=== PATIENT | female | born 1980 | race Caucasian/White ===

== ENCOUNTER 2019-09-22 11:44 | Outpatient (CLI) | payer BC, SELFPAY ==
--- NOTE | ~2019-09-22 | MR_ITS ---
EXAMINATION: MR pituitary wo/w con DATE: 09/22/2019 13:17 INDICATION: Hyperprolactinemia. TECHNIQUE: Magnetic resonance imaging (MRI) of the brain and brainstem was performed without and with 18 mL MultiHance intravenous contrast. Whole-brain sequences included sagittal T1-weighted FSE, axia l diffusion-weighted FS EPI, axial T2*-weighted GRE, axial T2-weighted FLAIR Propeller, and axial T2- weighted Propeller. Small boygw-bc-bboq sequences included sagittal and coronal T1-weighted FSE cente red at the pituitary. Postcontrast sequences included small oazkz-xn-baky coronal T1-weighted FSE in a time course and sagittal T1-weighted FSE and whole-brain axial T1-weighted FSE. Apparent diffusion coefficient (ADC) maps were created. COMPARISON: None. FINDINGS: The pituitary is normal in size with height of 8 mm and concave superior margin. The infund ibulum is at the midline. There are 3 foci of nonspecific increased T2-weighted signal intensity in t he cerebral white matter, which is within normal limits for the patient's age. There is no intracrani al hemorrhage, acute infarction, or abnormal intracranial mass lesion. The ventricles are normal in s ize. The paranasal sinuses are clear. The orbits are normal. The mastoid air cells are normal. IMPRESSION: 1. Normal brain. Normal pituitary. Reviewed, dictated and finalized at location A.
[2019-09-22 12:25] LABS: Estimated Glomerular Filt Rate > 60
== END 2019-09-22 11:45 | disposition home or self-care (01) ==
PROVIDERS: Visit Provider Obstetrics & Gynecology Gynecology
DX: E22.1 Hyperprolactinemia (principal)
CPT/HCPCS: 36415; 70553; A9577

== ENCOUNTER 2019-10-07 00:14 | Outpatient (CLI) | payer BC, SELFPAY ==
[2019-10-08 00:19] LABS: SARS-CoV-2 RNA PCR Negative
== END 2019-10-07 00:15 | disposition home or self-care (01) ==
LOC: ANHCOVIDDT 00:14
PROVIDERS: Visit Provider Obstetrics & Gynecology Gynecology
DX: Z01.818 Encounter for other preprocedural examination (principal); Z11.59 Encounter for screening for other viral diseases
CPT/HCPCS: 87635; C9803; U0003

== ENCOUNTER 2019-10-10 01:55 | Day surgery (SDC) | payer BC, SELFPAY ==
--- NOTE | 2019-10-10 07:23 | PM.HPGS ---
History of Present Illness History of Present Illness Consent: Risks, benefits, and alternatives have been discussed and questions answered. Patient agrees to proceed with procedure. Chief complaint: uterine fibroid Narrative: Jeannie Laird is a 39 year old female with increasingly heavy cycles since 06/23. Patient with history of myomectomy 06/21 and did well until recently. Pelvic u/s showed 2 fibroids in the endometrial cavity each approx. 1.5 cm. Reviewed options and plan to proceed with hysterscopic myomectomies. Risks of infection, bleeding, perforation, and fluid imbalance discussed. Patient agrees to proceed. PMFSH Past Medical History Medical History (Updated 10/10/19 @ 07:26 by Jelly Prater MD) (normal spontaneous vaginal delivery) x 2 Surgical History Surgical History (Updated 10/10/19 @ 07:26 by Jelly Prater MD) Status post hysteroscopic myomectomy Family History Family History (Updated 06/08/15 @ 13:50 by DOCTOR UNKNOWN) Other Diabetes mellitus Hypertension Social History Social History Smoking status: Never smoker Substance use: never Spiritual care concerns: No Meds Home Medications and Allergies Home Medications Medication Instructions Recorded Confirmed Type drospirenone-ethinyl estradiol 1 tablet PO DAILY 10/03/19 10/03/19 History Allergies Allergy/AdvReac Type Severity Reaction Status Date / Time No Known Allergies Allergy Unknown Verified 10/03/19 16:48 Exam Const: General: healthy appearing and alert Orientation/consciousness: patient oriented x3 Resp: Effort & Inspection: normal respiratory effort Auscultation: clear to auscultation bilaterally Cardio: Rate: regular rate Rhythm: regular rhythm GI: GI Palp: Yes Soft to palpation, No Tenderness to palpation present (GI) and No Palpable mass present : External Female Exam: normal external appearance Speculum Exam - Vagina: normal appearance of the vagina and normal vaginal discharge Speculum Exam - Cervix: normal appearance of the cervix Bimanual exam- vagina & uterus: uterine size normal and consistency normal Bimanual Exam- Adnexa, other: normal adnexae and No adnexal tenderness Neuro: General: patient oriented x3 Assessment and Plan Assessment and plan (1) Menorrhagia: Code(s): N92.0 - Excessive and frequent menstruation with regular cycle Status: Acute Assessment and Plan: Plan hysteroscopy and D&C (2) Fibroids: Code(s): D21.9 - Benign neoplasm of connective and other soft tissue, unspecified Status: Acute Assessment and Plan: with myosure resection if possible
--- NOTE | 2019-10-10 08:59 | WPDANESEPPF ---
Anes - Initial Pre Proc Eval Procedure: Operation Date: 10/10/19 10:00 Proposed Procedures p Hysteroscopy Dilation And Curettage With Myosure - Jelly Prater MD Date/Time: 10/10/19 08:59 Surgeon: Jelly Prater MD Pre Op Diagnosis: uterine fibroid Patient Data Age: 39 Gender: F Height: 5 ft 8 in Weight: 9.09 kg Allergies Allergy/AdvReac Type Severity Reaction Status Date / Time No Known Allergies Allergy Unknown Verified 10/03/19 16:48 Home Medications Medication Instructions Recorded Confirmed Type drospirenone-ethinyl estradiol 1 tablet PO DAILY 10/03/19 10/03/19 History Patient hx anesthesia problems: none Family hx anesthesia problems: none PMFSH Past Medical History Medical History (normal spontaneous vaginal delivery) x 2 Surgical History Surgical History Status post hysteroscopic myomectomy Family History Family History Other Diabetes mellitus Hypertension Social History Social History Smoking status: Never smoker Substance use: never Spiritual care concerns: No Anes - Eval Final PreProcedure Day of Procedure 10/10/19 08:59 Patient weight: obese Heart: regular rate and rhythm Lungs: clear to auscultation Airway: Mallampati scale class II Neurological: alert and oriented Last oral intake: >/= 8 hours ASA classification: II Emergent: no Anesthetic plan: proceed Anesthesia type and monitoring: general GIVS and standard monitoring Informed Consent: The patient's anesthetic plan and its attendant risks and benefits were discussed with the patient/family/POA. Questions were solicited and answers provided to the satisfaction of the patient/family/POA.
[2019-10-10 09:00] VITALS: BP 114/71; PULSE 78; RESP 16; TEMP 37.5; O2SAT 100
[2019-10-10] MEDS: LACTATED RINGERS 1,000 ML 30 ML IV CONT (09:05)
[2019-10-10] MEDS: KETOROLAC 30 MG/ML VIAL (*BKC) 15 MG IV PUSH (09:17)
[2019-10-10 09:58] VITALS: BP 131/87; PULSE 73; RESP 19; O2SAT 96
--- NOTE | 2019-10-10 09:58 | PM.OP ---
Procedure Note - Brief Procedure Note - Brief Date of procedure: 10/10/19 Pre-op diagnosis: uterine fibroid menorrhagia Post-op diagnosis: same Procedure performed: hysteroscopy with D&C and myosure resection of fibroid Anesthesia: MAC and local Surgeon: Jelly Prater MD Estimated blood loss (mL): 5 Drains: No Packing: No Pathology: yes (endometrial shavings, curettings, and 2 pieces of fibroid) Complications: No immediate complications Condition: stable Disposition: PACU Findings: uterus retroverted, 9 cm; bilobed fibroid left anterior; remainder of endometrium appears normal
[2019-10-10 10:25] VITALS: BP 132/68; PULSE 50; RESP 16
[2019-10-10 10:50] VITALS: BP 125/78; PULSE 62; RESP 16
--- NOTE | 2019-10-11 06:19 | OP_ITS ---
DATE OF PROCEDURE: 10/10/2019 PREOPERATIVE DIAGNOSIS: Menorrhagia, fibroids. POSTOPERATIVE DIAGNOSIS: Menorrhagia, fibroids. PROCEDURE: D and C, hysteroscopy with MyoSure resection of fibroid. ESTIMATED BLOOD LOSS: 5 cc. PATHOLOGY: Endometrial curettings and shavings as well as 2 separate pieces of fibroid material. FINDINGS: The uterus sounds to 9 cm and it was noted to be retroverted. The remainder of the endometrium appears normal. There is a bilobed fibroid at the left anterior wall. Fluid deficit at the end of the case was 150 cc. DESCRIPTION OF PROCEDURE: The patient was taken to the operating room, placed under anesthesia in the dorsal lithotomy position. She was prepped and draped in the usual sterile fashion. Bivalved speculum was placed in the vagina. Cervix was grasped on the anterior lip with a tenaculum and injected with 1% lidocaine. The uterus was sounded to 9 cm and noted to be retroverted. The cervix was serially dilated with Hegar. The MyoSure device camera is placed with the above-stated findings. The MyoSure device was opened and placed through the camera. Under direct visualization, the fibroid is shaved. The fibroid was very calcified and the MyoSure device kept stopping and needed to be reset approximately half way through the case. The MyoSure device could resecting and would only spin, a second handpiece was opened. The remainder of the fibroid was able to be split at its base. The base is excised using the MyoSure. The 2 pieces of fibroid are grasped with myoma graspers and removed manually. The endometrium was sharply curetted with a good uterine cry noted in all areas at the end of the case. All instruments were removed. The patient was taken to Recovery in stable condition. D I MT: Mahsa
== END 2019-10-10 11:05 | disposition home or self-care (01) ==
PROVIDERS: Visit Provider Obstetrics & Gynecology Gynecology
PROC: 0U5B8ZZ Destruction of Endometrium, Via Natural or Artificial Opening Endoscopic (ICD-10-PCS; CPT 58563; principal; 2019-10-10 10:00)
DX: N92.0 Excessive and frequent menstruation with regular cycle (principal); D25.9 Leiomyoma of uterus, unspecified; E66.9 Obesity, unspecified; Z68.31 Body mass index [BMI] 31.0-31.9, adult
CPT/HCPCS: 58561; 87635; 88305; A9270; C9803; J1885; J2250; J2704; J7030; J7120; U0003